=== PATIENT | male | born 1950 | race Caucasian/White ===

== ENCOUNTER 2017-07-12 06:10 | Observation (INO) | payer MEDICARE ==
[~2017-07-12] VITALS: Ht 177.8 cm; Wt 79.5 kg
[2017-07-12 06:37] VITALS: BP 106/67
[2017-07-12 07:03] LABS: HEMATOCRIT 44.4 % (39.2-51.8); HEMOGLOBIN 14.6 g/dL (13.7-18.0); WHITE BLOOD COUNT 7.6 x10^3/uL (3.4-10)
[2017-07-12] MEDS ORDERED: ASPI-621 PO (07:07)
[2017-07-12] MEDS ORDERED: INSU100I32 SQ (07:07)
[2017-07-12] MEDS ORDERED: EMPA10TA PO (07:07)
[2017-07-12] MEDS ORDERED: AMLO5TAB2 PO (07:07)
[2017-07-12] MEDS ORDERED: TICA90TA PO (07:07)
[2017-07-12] MEDS ORDERED: ATOR40TA78 PO (07:07)
[2017-07-12] MEDS ORDERED: METF10002 PO (07:07)
[2017-07-12] MEDS ORDERED: CARV12.52 PO (07:07)
[2017-07-12 07:15] LABS: BLOOD UREA NITROGEN 13 mg/dL (7-18)
[2017-07-12] MEDS ORDERED: NITROGLYCERIN 5 MG/ML, 10ML ONE (07:46)
[2017-07-12] MEDS ORDERED: HEPARIN 1,000 UNITS/ML, 10ML ONE ×4 (07:46→09:22)
[2017-07-12] MEDS ORDERED: ADENOSINE 6 MG/2 ML ONE (07:46)
[2017-07-12] MEDS ORDERED: LIDOCAINE 2%, 20ML ONE (07:46)
[2017-07-12] MEDS ORDERED: VERAPAMIL 2.5 MG/ML, 2ML ONE ×2 (07:46→07:53)
[2017-07-12] MEDS ORDERED: MIDAZOLAM 1 MG/ML, 5ML ONE (08:08)
[2017-07-12] MEDS ORDERED: FENTANYL PF 100 MCG/2ML ONE ×2 (08:08→08:55)
[2017-07-12] MEDS ORDERED: DEXAMETHASONE 4 MG/ML, 1ML ONE (08:15)
[2017-07-12] MEDS ORDERED: PROPOFOL 10 MG/ML, 20ML ONE (08:15)
[2017-07-12] MEDS ORDERED: ONDANSETRON 2MG/ML, 2ML ONE (08:15)
[2017-07-12] MEDS ORDERED: FENTANYL PF 100 MCG/2ML IV PRN (10:30)
[2017-07-12] MEDS ORDERED: HYDROmorphone 1 MG/ML, 1ML IV PRN (10:30)
[2017-07-12] MEDS ORDERED: PROMETHAZINE 25 MG/ML, 1ML IV PRN (10:30)
[2017-07-12] MEDS ORDERED: OXYcodone 5 MG/5 ML ORAL.SOL UDC PO PRN (10:30)
[2017-07-12] MEDS ORDERED: ONDANSETRON 2MG/ML, 2ML IVPush PRN (10:30)
[2017-07-12] MEDS ORDERED: MIDAZOLAM 1 MG/ML, 2ML IV PRN (10:30)
[2017-07-12 11:38] VITALS: BP 104/69
[2017-07-12 17:29] VITALS: BP 102/65
[2017-07-12] MEDS: CARVEDILOL 12.5 MG TABLET PO SCH (18:20)
[2017-07-12 18:45] VITALS: BP 95/58
[2017-07-12] MEDS: TICAGRELOR 90 MG TABLET PO SCH (19:38)
[2017-07-12] MEDS ORDERED: ATORVASTATIN 40 MG TABLET PO SCH (21:00)
[2017-07-13 01:44] VITALS: BP 108/67
[2017-07-13 05:07] VITALS: BP 109/65
[2017-07-13] MEDS: CARVEDILOL 12.5 MG TABLET PO SCH (05:10)
[2017-07-13 05:47] LABS: WHITE BLOOD COUNT 10.2 x10^3/uL (3.4-10)
[2017-07-13] MEDS ORDERED: ASPIRIN 81 MG TABLET EC PO SCH (06:00)
[2017-07-13 06:32] LABS: BLOOD UREA NITROGEN 17 mg/dL (7-18)
[2017-07-13 07:15] VITALS: BP 121/73
[2017-07-13] MEDS: TICAGRELOR 90 MG TABLET PO SCH (08:24)
[2017-07-13] MEDS ORDERED: INSULIN DEGLUDEC SC SCH (09:00)
[2017-07-13] MEDS ORDERED: AMLODIPINE 5 MG TABLET PO SCH (09:00)
== END 2017-07-13 09:19 | disposition home or self-care (01) ==
LOC: CACL 06:10 → 5SO 11:53 → CACL 12:39 → DCLOUNGE 07-13 08:53
PROVIDERS: ADMIT Internal Medicine Interventional Cardiology; ATTEND Internal Medicine Interventional Cardiology
DX: I25.10 Atherosclerotic heart disease of native coronary artery without angina pectoris (principal); Z95.1 Presence of aortocoronary bypass graft; Z87.891 Personal history of nicotine dependence
CPT/HCPCS: 33210; 36415; 80048; 82962; 85025; 85610; 85730; 93005; 93454; C1724; C1725; C1760; C1769; C1874; C1887; C1894; C9602; G0378; J1100; J1644; J2250; J2405; J2704; J3010; J3490; Q9967; 85347; J0153